=== PATIENT | female | born 1940 | race Caucasian/White ===

== ENCOUNTER 2024-05-16 18:34 | Inpatient (IN) | payer OTHER ==
[2024-05-16] MEDS ORDERED: ALPRAZolam 0.25 MG TAB PO PRN (19:44)
[2024-05-16] MEDS ORDERED: Ondansetron ODT 4 MG TAB PO PRN (19:46)
[2024-05-16] MEDS: Levothyroxine Sodium 75 MCG TAB PO SCH (20:43)
[2024-05-16] MEDS: Apixaban 2.5 MG TAB PO SCH (20:44)
[2024-05-16] MEDS: NIFEdipine XL 30 MG ER.TAB PO SCH (20:44)
[2024-05-16] MEDS: Calcium Carbonate 600 MG + Vit D TAB PO SCH (20:44)
[2024-05-16] MEDS: Acetaminophen 325 MG TAB PO PRN (20:47)
[2024-05-16 21:18] VITALS: BMI 29.7
[2024-05-17 05:05] LABS: Band 2 % (5-11); Eosinophils 5 % (0-10); Hematocrit 36.6 % (36.0-47.0); Hemoglobin 11.8 g/dL (12.0-16.0); Lymphocytes 37 % (21-51); MDiff Complete? YES; Mean Corpuscular HGB CONC 32.2 g/dL (32.0-36.0); Mean Corpuscular Volume 96.3 fl (78.0-98.0); Mean Platelet Volume 6.9 fL (7.4-10.4); Monocytes 6 % (0-10); Neutrophil 49 % (42-75); Platelet Count 317 10x3/uL (130-400); RBC Distribution Width 12.6 % (11.5-14.5); White Blood Cell (WBC) Count 6.5 10x3/uL (4.8-10.8)
[2024-05-17 05:16] LABS: ALT (SGPT) 22 U/L (8-55); AST (SGOT) 20 U/L (5-34); Albumin 3.2 g/dL (3.4-4.8); Alkaline Phosphatase 109 U/L (40-110); Anion Gap 12 mmol/L (10-20); BUN (Urea Nitrogen) 18 mg/dL (9.8-20.1); Bilirubin, Total 0.4 mg/dL (0.2-1.2); Calc. Creatinine Clearance 70 mL/min (70-130); Calcium 9.8 mg/dL (7.8-10.44); Carbon Dioxide 25 mmol/L (23-31); Chloride 110 mmol/L (98-107); Estimated GFR 79; Globulin 3.1 g/dL (2.4-3.5); Glucose 95 mg/dL (83-110); Potassium 3.7 mmol/L (3.5-5.1); Protein, Total 6.3 g/dL (5.8-8.1); Sodium 143 mmol/L (136-145)
[2024-05-17] MEDS ORDERED: NIFEdipine XL 30 MG ER.TAB PO SCH (09:00)
[2024-05-17] MEDS: NIFEdipine XL 30 MG ER.TAB PO SCH ×2 (09:09→20:10)
[2024-05-17] MEDS: Losartan 25 MG TAB PO SCH (09:09)
[2024-05-17] MEDS: Fish Oil 1,000 MG CAP PO SCH (09:10)
[2024-05-17] MEDS: Polyethylene Glycol 3350 17 GM Packet PO SCH (09:10)
[2024-05-17] MEDS: PRENATAL VITAMIN PO SCH (09:11)
[2024-05-18] MEDS: oxyCODONE 5 MG TAB PO PRN (20:18)
[2024-05-19] MEDS: Multivitamin W/ Minerals 1 TAB PO SCH (09:29)
[2024-05-19] MEDS: oxyCODONE 5 MG TAB PO PRN (20:34)
[2024-05-20] MEDS: Levothyroxine Sodium 75 MCG TAB PO SCH (05:12)
[2024-05-20 07:33] VITALS: BMI 29.7
[2024-05-26 15:25] VITALS: BP 128/81; TEMP 98.2
== END 2024-05-26 15:20 | disposition home or self-care (01) | DRG 948 ==
LOC: MADMS 19:22
PROVIDERS: ADMIT Family Medicine; ATTEND Family Medicine
DX: R53.81 Other malaise (principal); E03.9 Hypothyroidism, unspecified; I10 Essential (primary) hypertension; M16.12 Unilateral primary osteoarthritis, left hip; Z98.890 Other specified postprocedural states; Z79.01 Long term (current) use of anticoagulants; Z79.899 Other long term (current) drug therapy; Z88.2 Allergy status to sulfonamides; Z88.8 Allergy status to other drugs, medicaments and biological substances
CPT/HCPCS: 36415; 80053; 85025